=== PATIENT | female | born 1990 | race African-American/Black ===

== ENCOUNTER 2016-08-20 16:52 | Emergency (ER) | payer SELFPAY ==
[2016-08-20] MEDS ORDERED: KETOROLAC TROMETHAMINE 60 MG/2 ML SDV IM ONE (18:14)
--- NOTE | 2016-08-20 18:15 | ER Document Report ---
ED Medical Screen (RME) - General Chief Complaint: Abdominal Pain Stated Complaint: SIDE PAIN, HEAD PAIN, BACK PAIN Time Seen by Provider: 08/20/16 18:13 Mode of Arrival: Ambulatory Information source: Patient Notes: Is a 25-year-old female with no prior medical problems who presents to the emergency room with bilateral flank pain since this morning. Patient does state she has had a headache recently which she attributes to her allergies acting up. She denies any blood in the urine. She admits to polyuria. She denies dysuria. She denies fever, chills, nausea vomiting Medical history: None Allergies: None Medicines: None Past surgical history: None Last normal menstrual period: One week ago. Patient states she is not sexually active. TRAVEL OUTSIDE OF THE [place] IN LAST 30 DAYS: No - Related Data Allergies/Adverse Reactions: No Known Allergies Allergy (Verified 08/20/16 16:56) Past Medical History Pulmonary Medical History: Reports: Hx Asthma Renal/ Medical History: Denies: Hx Peritoneal Dialysis - Immunizations Hx Diphtheria, Pertussis, Tetanus Vaccination: Yes Physical Exam - Vital signs Vitals: Temp Pulse Resp BP Pulse Ox 97.9 F 49 L 14 132/65 H 99 08/20/16 16:57 08/20/16 16:57 08/20/16 16:57 08/20/16 16:57 08/20/16 16:57 Course - Vital Signs Vital signs: Temp Pulse Resp BP Pulse Ox 97.9 F 49 L 14 132/65 H 99 08/20/16 16:57 08/20/16 16:57 08/20/16 16:57 08/20/16 16:57 08/20/16 16:57
[2016-08-20 18:50] LABS: ABSOLUTE BASOPHILS # (AUTO) 0.1 10^3/uL (0.0-0.2); ABSOLUTE EOSINOPHILS # (AUTO) 0.8 10^3/uL (0.0-0.6); ABSOLUTE LYMPHOCYTES (AUTO) 2.4 10^3/uL (0.5-4.7); ABSOLUTE MONOCYTES (AUTO) 0.3 10^3/uL (0.1-1.4); BASOPHILS % (AUTO) 0.8 % (0-2); EOSINOPHILS % (AUTO) 11.8 % (0-6); HEMATOCRIT 41.9 % (36.0-47.0); HEMOGLOBIN 13.6 g/dL (12.0-15.5); HGB HCT DIFFERENCE -1.1; LYMPHOCYTES % (AUTO) 36.1 % (13-45); MEAN CORPUSCULAR HEMOGLOBIN 27.3 pg (27.0-33.4); MEAN CORPUSCULAR HGB CONC 32.6 g/dL (32.0-36.0); MEAN CORPUSCULAR VOLUME 84 fl (80-97); MONOCYTES % (AUTO) 5.3 % (3-13); RED CELL DISTRIBUTION WIDTH 14.4 % (11.5-14.0); WHITE BLOOD COUNT 6.6 10^3/uL (4.0-10.5)
[2016-08-20 18:58] LABS: APPEARANCE,URINE TURBID; BILIRUBIN,URINE NEGATIVE (NEGATIVE); GLUCOSE, URINE NEGATIVE (NEGATIVE); KETONES,URINE NEGATIVE (NEGATIVE); LEUKOCYTE ESTERASE,URINE NEGATIVE (NEGATIVE); NITRITE,URINE NEGATIVE (NEGATIVE); PROTEIN,URINE 30 mg/dL (NEGATIVE); URINE SPECIFIC GRAVITY 1.019
[2016-08-20 19:01] LABS: ALANINE AMINOTRANSFERASE 22 U/L (9-52); ALBUMIN 4.5 g/dL (3.5-5.0); ALKALINE PHOSPHATASE 68 U/L (38-126); ANION GAP 11 (5-19); ASPARTATE AMINO TRANSFERASE 17 U/L (14-36); BILIRUBIN,DIRECT 0.3 mg/dL (0.0-0.4); BILIRUBIN,TOTAL 0.4 mg/dL (0.2-1.3); BLOOD UREA NITROGEN 9 mg/dL (7-20); CALCIUM 9.6 mg/dL (8.4-10.2); CARBON DIOXIDE 27 mmol/L (22-30); CHLORIDE 104 mmol/L (98-107); CREATININE RESULT 0.66 mg/dL (0.52-1.25); GLUCOSE 105 mg/dL (75-110); POTASSIUM 3.6 mmol/L (3.6-5.0); SODIUM 141.7 mmol/L (137-145); TOTAL PROTEIN 7.8 g/dL (6.3-8.2)
[2016-08-20] MEDS ORDERED: IBUPROFEN 800 MG TABLET PO ONE (20:10)
[2016-08-20] MEDS ORDERED: ACETAMINOPHEN 325 MG TABLET PO ONE (20:10)
--- NOTE | 2016-08-20 20:11 | ER Document Report ---
ED General Pain - General Mode of Arrival: Ambulatory Information source: Patient TRAVEL OUTSIDE OF THE [place] IN LAST 30 DAYS: No - HPI Patient complains to provider of: flank pain Associated symptoms: Other - See above <ZAFAR PELAYO - Last Filed: 08/20/16 20:31> <BYRON COPELAND - Last Filed: 08/21/16 00:16> - General Chief Complaint: Flank Pain Stated Complaint: flank pain Time Seen by Provider: 08/20/16 18:13 Notes: Patient is a 25 year old female who presents to the emergency department complaining of bilateral flank pain. Patient reports she has been having body pains for a while but today it worsened and is mostly located in her sides. Patient also complains of a headache that started this afternoon located in the front of her head between her eyes, and a runny nose. Patient states that she does have seasonal allergies and is supposed to be taking allergy medication but does not. Patient denies fever, cough, dysuria, hematuria, and sore throat. (ZAFAR PELAYO) - Related Data Allergies/Adverse Reactions: No Known Allergies Allergy (Verified 08/20/16 16:56) Past Medical History - General Information source: Patient - Social History Smoking Status: Never Smoker Chew tobacco use (# tins/day): No Frequency of alcohol use: Occasional Drug Abuse: None Family History: Reviewed & Not Pertinent Patient has suicidal ideation: No Patient has homicidal ideation: No Pulmonary Medical History: Reports: Hx Asthma - Immunizations Hx Diphtheria, Pertussis, Tetanus Vaccination: Yes <ZAFAR PELAYO - Last Filed: 08/20/16 20:31> Review of Systems - Review of Systems Constitutional: See HPI, Other - body pains. denies: Fever EENT: See HPI, Nose discharge. denies: Throat pain Cardiovascular: No symptoms reported Respiratory: No symptoms reported Gastrointestinal: No symptoms reported Genitourinary: See HPI, Flank pain. denies: Dysuria, Hematuria Female Genitourinary: No symptoms reported Musculoskeletal: No symptoms reported Skin: No symptoms reported Hematologic/Lymphatic: No symptoms reported Neurological/Psychological: See HPI, Headaches -: Yes All other systems reviewed and negative <ZAFAR PELAYO - Last Filed: 08/20/16 20:31> Physical Exam <ZAFAR PELAYO - Last Filed: 08/20/16 20:31> <BYRON COPELAND - Last Filed: 08/21/16 00:16> - Vital signs Vitals: Temp Pulse Resp BP Pulse Ox 97.9 F 49 L 14 132/65 H 99 08/20/16 16:57 08/20/16 16:57 08/20/16 16:57 08/20/16 16:57 08/20/16 16:57 - Notes Notes: GENERAL: Alert, interacts well. No acute distress. HEAD: Normocephalic, atraumatic. EYES: Pupils equal, round, and reactive to light. Extraocular movements intact. ENT: Oral mucosa moist, tongue midline. NECK: Full range of motion. Supple. Trachea midline. LUNGS: Clear to auscultation bilaterally, no wheezes, rales, or rhonchi. Dry cough. No respiratory distress. HEART: Regular rate and rhythm. No murmurs, gallops, or rubs. BACK: Tenderness to palpation of lower rib cage bilaterally in mid-axillary line ABDOMEN: Soft, non-tender. Non-distended. Bowel sounds present in all 4 quadrants. EXTREMITIES: Moves all 4 extremities spontaneously. No edema, radial pulses 2/4 bilaterally. No cyanosis. NEUROLOGICAL: Alert and oriented x3. Normal speech. PSYCH: Normal affect, normal mood. SKIN: Warm, dry, normal turgor. No rashes or lesions noted. (ZAFAR PELAYO) Course - Laboratory Result Diagrams: 08/20/16 18:20 08/20/16 18:20 <ZAFAR PELAYO - Last Filed: 08/20/16 20:31> - Laboratory Result Diagrams: 08/20/16 18:20 08/20/16 18:20 <BYRON COPELAND - Last Filed: 08/21/16 00:16> - Re-evaluation Re-evalutation: 08/20/16 20:11 CBC unremarkable, CMP unremarkable, urinalysis unremarkable, patient is not . No evidence of urinary tract infection or kidney stone. At present the headache is consistent with her prior sinus headache that she gets with her seasonal allergies and she admits that she has not taken any antiallergy medications recently. Patient will be restarted on Zyrtec and discharged home. I am uncertain what is causing her bilateral flank pain at this time although it appears more musculoskeletal. We did discuss that it could be coming from her dry cough, there is no wheezing and her cough is nonproductive, no indication for steroids, breathing treatments or antibiotics. At present patient will try 3 days of scheduled ibuprofen and acetaminophen and will return for any new or concerning symptoms. (BYRON COPELAND) - Vital Signs Vital signs: Temp Pulse Resp BP Pulse Ox 98.3 F 51 L 17 139/83 H 100 08/20/16 20:23 08/20/16 20:23 08/20/16 20:23 08/20/16 20:23 08/20/16 20:23 - Laboratory Laboratory results interpreted by me: 08/20/16 08/20/16 18:20 18:25 RDW 14.4 H Eosinophils % 11.8 H Absolute Eosinophils 0.8 H Urine Protein 30 H Urine Urobilinogen 4.0 H Discharge <ZAFAR PELAYO - Last Filed: 08/20/16 20:31> <BYRON COPELAND - Last Filed: 08/21/16 00:16> - Discharge Clinical Impression: Bilateral flank pain, Sinus headache Seasonal allergies Qualifiers: Chronicity: acute Allergic rhinitis trigger: pollen Qualified Code(s): J30.1 - Allergic rhinitis due to pollen Condition: Stable Disposition: HOME, SELF-CARE Instructions: Hay Fever ([facility]) Additional Instructions: Please use ibuprofen (Motrin or Advil) 600-800 mg every 8 hours as needed for pain or fever. You may also use acetaminophen (Tylenol) 1000 mg every 4-6 hours as needed for pain or fever. Please be aware that many medications contain acetaminophen, do not exceed a total of 1000 mg of acetaminophen every 6 hours. Please take your choice of [id number] antiallergy medication including Zyrtec or Claritin or Tracy. Prescriptions: Cetirizine HCl [Zyrtec] 10 mg PO DAILY #30 tablet Forms: Return to School, Return to Work Scribe Attestation: 08/21/16 00:16 I personally performed the services described in the documentation, reviewed and edited the documentation which was dictated to the scribe in my presence, and it accurately records my words and actions. (BYRON COPELAND) Scribe Documentation - Scribe Written by Lien:: lien Perdue, 08/20/162035 acting as scribe for :: Reza <ZAFAR PELAYO - Last Filed: 08/20/16 20:31>
[2016-08-20 20:32] VITALS: BP 139/83
== END 2016-08-20 20:30 | disposition home or self-care (01) ==
LOC: ER 16:52
DX: J30.1 Allergic rhinitis due to pollen (principal); R51 Headache; R10.9 Unspecified abdominal pain
CPT/HCPCS: 99284; 96372; 36415; 84702; 85025; 80053; 81001; J1885

== ENCOUNTER 2016-10-26 13:33 | Emergency (ER) | payer SELFPAY ==
[2016-10-26 13:42] VITALS: BP 134/71
[2016-10-26] MEDS ORDERED: IBUPROFEN 600 MG TABLET PO ONE (13:49)
--- NOTE | 2016-10-26 13:50 | ER Document Report ---
ED Extremity Problem, Lower - General Chief Complaint: Ankle Pain Stated Complaint: ANKLE PAIN Time Seen by Provider: 10/26/16 13:49 Mode of Arrival: Wheelchair Information source: Patient TRAVEL OUTSIDE OF THE [place] IN LAST 30 DAYS: No - HPI Patient complains to provider of: Injury, Pain, Swelling Location: Ankle, Knee Occurred: Yesterday Onset/Duration: Sudden Quality of pain: Achy Severity: Moderate Pain Level: 3 Context: Fell Recent injury: Yes Associated symptoms: Painful ambulation Exacerbated by: Movement, Walking Relieved by: Nothing Notes: Patient is a 25-year-old female presenting to the emergency room complaining of right ankle pain that started after trip and fall yesterday, she is now having right knee pain as well, states she thought she would feel better in the morning but has continued pain with mild swelling, denies pain or injury elsewhere - Related Data Allergies/Adverse Reactions: No Known Allergies Allergy (Verified 08/20/16 16:56) Past Medical History - General Information source: Patient - Social History Smoking Status: Never Smoker Family History: Reviewed & Not Pertinent Patient has suicidal ideation: No Patient has homicidal ideation: No Pulmonary Medical History: Reports: Hx Asthma Renal/ Medical History: Denies: Hx Peritoneal Dialysis - Immunizations Hx Diphtheria, Pertussis, Tetanus Vaccination: Yes Review of Systems - Review of Systems Constitutional: No symptoms reported EENT: No symptoms reported Cardiovascular: No symptoms reported Respiratory: No symptoms reported Gastrointestinal: No symptoms reported Genitourinary: No symptoms reported Female Genitourinary: No symptoms reported Musculoskeletal: See HPI Skin: No symptoms reported Hematologic/Lymphatic: No symptoms reported Neurological/Psychological: No symptoms reported -: Yes All other systems reviewed and negative Physical Exam - Vital signs Vitals: Temp Pulse Resp BP Pulse Ox 97.6 F 76 16 134/71 H 98 10/26/16 13:39 10/26/16 13:39 10/26/16 13:39 10/26/16 13:39 10/26/16 13:39 - Notes Notes: - General General appearance: Appears well, Alert In distress: None - HEENT Head: Normocephalic, Atraumatic Eyes: Normal Conjunctiva: Normal Extraocular movements intact: Yes Eyelashes: Normal Pupils: PERRL - Respiratory Respiratory status: No respiratory distress - Cardiovascular Rhythm: Regular - Abdominal Inspection: Normal - Back Back: Normal - Extremities General upper extremity: Normal inspection General lower extremity: No deformity noted, patient does have mild swelling in the lateral malleolus of the right foot, with tenderness to palpate in pain with range of motion testing, right knee physical exam findings unremarkable - Neurological Neuro grossly intact: Yes Orientation: AAOx4 [place] Coma Scale Eye Opening: Spontaneous Ten Coma Scale Verbal: Oriented [place] Coma Scale Motor: Obeys Commands [place] Coma Scale Total: 15 - Psychological Associated symptoms: Normal affect, Normal mood - Skin Skin Temperature: Warm Skin Moisture: Dry Skin Color: Normal Course - Re-evaluation Re-evalutation: 10/26/16 14:19 Patient symptoms and physical exam findings are consistent with mild sprain of the right ankle, imaging shows no signs of acute fracture or dislocation, patient was placed in an Doug wrap and provided with Motrin, advised to follow- up with orthopedics as needed, ice and elevate, limit ambulation, return if symptoms worsen, patient acknowledges understanding and agreement with this plan - Vital Signs Vital signs: Temp Pulse Resp BP Pulse Ox 97.6 F 76 16 134/71 H 98 10/26/16 13:39 10/26/16 13:39 10/26/16 13:39 10/26/16 13:39 10/26/16 13:39 - Diagnostic Test Radiology reviewed: Image reviewed, Reports reviewed Procedures - Immobilization Right Ankle Time completed: 14:20 Pre-Proc Neuro Vasc Exam: Normal Immobilizer type: Doug wrap Performed by: PCT Post-Proc Neuro Vasc Exam: Normal Alignment checked and good: Yes Discharge - Discharge Clinical Impression: Ankle sprain Qualifiers: Encounter type: initial encounter Involved ligament of ankle: unspecified ligament Laterality: right Qualified Code(s): S93.401A - Sprain of unspecified ligament of right ankle, initial encounter Condition: Stable Disposition: HOME, SELF-CARE Instructions: Ice Packs ([facility]), Sprained Ankle ([facility]) Additional Instructions: Follow up with your primary care provider and an orthopedic surgeon in one to 2 days. Return to the emergency room immediately if symptoms worsen or any additional concerns. Ice and elevate the affected extremity. Limit weightbearing. Prescriptions: Ibuprofen [Motrin 600 Mg Tablet] 600 mg PO TID #30 tablet Forms: Return to Work Referrals: RODRIGUEZ TRIPLETT MD [ACTIVE STAFF] - Follow up as needed
--- NOTE | 2016-10-26 14:28 | RADIOLOGY REPORT (SQ) ---
EXAM DESCRIPTION: KNEE RIGHT 4 VIEWS COMPLETED DATE/TIME: 10/26/2016 2:09 pm REASON FOR STUDY: injury COMPARISON: None. NUMBER OF VIEWS: Four views. TECHNIQUE: AP, lateral, and both oblique radiographic images acquired of the right knee. LIMITATIONS: None. FINDINGS: MINERALIZATION: Normal. BONES: No acute fracture or dislocation. No worrisome bone lesions. JOINT: No effusion. SOFT TISSUES: No soft tissue swelling. No radio-opaque foreign body. OTHER: No other significant finding. IMPRESSION: NEGATIVE STUDY OF THE RIGHT KNEE. NO RADIOGRAPHIC EVIDENCE OF ACUTE INJURY. TECHNICAL DOCUMENTATION: JOB ID: [id number] [employer]- All Rights Reserved
--- NOTE | 2016-10-26 14:28 | RADIOLOGY REPORT (SQ) ---
EXAM DESCRIPTION: ANKLE RIGHT COMPLETE COMPLETED DATE/TIME: 10/26/2016 2:09 pm REASON FOR STUDY: injury COMPARISON: None. NUMBER OF VIEWS: Three views. TECHNIQUE: AP, lateral, and oblique radiographic images acquired of the right ankle. LIMITATIONS: None. FINDINGS: MINERALIZATION: Normal. BONES: No acute fracture or dislocation. No worrisome bone lesions. JOINTS: No effusions. SOFT TISSUES: No soft tissue swelling. No foreign body. OTHER: No other significant finding. IMPRESSION: NEGATIVE STUDY OF THE RIGHT ANKLE. NO RADIOGRAPHIC EVIDENCE OF ACUTE INJURY. TECHNICAL DOCUMENTATION: JOB ID: [id number] [employer]- All Rights Reserved
== END 2016-10-26 14:38 | disposition home or self-care (01) ==
LOC: ER 13:33
DX: S93.401A Sprain of unspecified ligament of right ankle, initial encounter (principal); M25.561 Pain in right knee; W01.0XXA Fall on same level from slipping, tripping and stumbling without subsequent striking against object, initial encounter
CPT/HCPCS: 99283

== ENCOUNTER 2019-04-10 16:00 | Emergency (ER) | payer SELFPAY ==
[2019-04-10 16:58] VITALS: BP 130/76
--- NOTE | 2019-04-10 17:16 | ER Document Report ---
HPI - HPI Patient complains to provider of: left eye redness Time Seen by Provider: 04/10/19 17:07 Onset: Other - 3 days Onset/Duration: Persistent Pain Level: Denies Context: Patient presents complaining of left eye redness for the past 3 days. Patient denies any eye pain. Patient denies any drainage or change in vision. Patient denies any use of contact lenses or glasses. Associated Symptoms: Nonproductive cough Exacerbated by: Denies Relieved by: Denies Similar symptoms previously: No Recently seen / treated by doctor: No - ROS ROS below otherwise negative: Yes Systems Reviewed and Negative: Yes All other systems reviewed and negative - EENT EENT: REPORTS: Eye problems - RESPIRATORY Respiratory: REPORTS: Coughing - GASTROINTESTINAL Gastrointestinal: DENIES: Nausea, Patient vomiting - REPRODUCTIVE Reproductive: DENIES: : - DERM Skin Color: Normal Skin Problems: None Past Medical History - General Information source: Patient - Social History Smoking Status: Never Smoker Frequency of alcohol use: None Drug Abuse: None Occupation: Foodservice Lives with: Family Family History: Reviewed & Not Pertinent Patient has suicidal ideation: No Patient has homicidal ideation: No Pulmonary Medical History: Reports: Hx Asthma Renal/ Medical History: Denies: Hx Peritoneal Dialysis Surgical Hx: Negative - Immunizations Hx Diphtheria, Pertussis, Tetanus Vaccination: Yes Vertical Provider Document - CONSTITUTIONAL Agree With Documented VS: Yes Exam Limitations: No Limitations General Appearance: WD/WN, No Apparent Distress - INFECTION CONTROL TRAVEL OUTSIDE OF THE [place] IN LAST 30 DAYS: No - HEENT HEENT: Atraumatic, Normocephalic Notes: Patient with subconjunctival hemorrhage to the left eye, extraocular movements intact, no drainage or discharge, no ophthalmoplegia - NECK Neck: Normal Inspection - RESPIRATORY Respiratory: Breath Sounds Normal, No Respiratory Distress - CARDIOVASCULAR Cardiovascular: Regular Rate, Regular Rhythm - MUSCULOSKELETAL/EXTREMETIES Musculoskeletal/Extremeties: MAEW - NEURO Level of Consciousness: Awake, Alert, Appropriate Motor/Sensory: No Motor Deficit - DERM Integumentary: Warm, Dry, No Rash Course - Vital Signs Vital signs: Temp Pulse Resp BP Pulse Ox 98.1 F 61 16 130/76 H 99 04/10/19 16:15 04/10/19 16:15 04/10/19 16:15 04/10/19 16:15 04/10/19 16:15 Discharge - Discharge Clinical Impression: Subconjunctival hemorrhage of left eye Condition: Stable Disposition: HOME, SELF-CARE Instructions: Subconjunctival Hemorrhage ([facility]) Additional Instructions: Return immediately for any new or worsening symptoms Followup with ophthalmology for any persistent problems Referrals: [facility] [Provider Group] - Follow up as needed [facility] [Provider Group] - Follow up as needed
== END 2019-04-10 17:16 | disposition home or self-care (01) ==
LOC: ER 16:00
DX: H11.32 Conjunctival hemorrhage, left eye (principal); R05 Cough; J45.909 Unspecified asthma, uncomplicated